=== PATIENT | male | born 1990 | race Caucasian/White ===

== ENCOUNTER 2022-06-01 20:31 | Emergency (ER) | payer MEDICAID ==
[~2022-06-01] VITALS: Ht 198.1 cm; Wt 74.8 kg
[2022-06-01 20:40] VITALS: BP 153/96
--- NOTE | 2022-06-01 20:43 | NUR ---
to lobby a/w bed ambulatory
[2022-06-01] MEDS ORDERED: BACITRACIN OINT 500 UNITS/GM PKT TP ONE (21:15)
--- NOTE | 2022-06-01 21:15 | NUR ---
to chair A ambulatory
--- NOTE | 2022-06-01 21:32 | NUR ---
seen and examined by RYAN, with orders and carried out.
[2022-06-01] MEDS ORDERED: NAPR-54 PO (21:50)
--- NOTE | 2022-06-01 22:10 | NUR ---
GAVE PATIENT ICE PACK PER RQ
[2022-06-01 22:12] VITALS: BP 138/80
--- NOTE | 2022-06-01 22:12 | NUR ---
Patient discharged with v/s stable. Written and verbal after care instructions given BURN CARE and explained. Patient alert, oriented and verbalized understanding of instructions. Ambulatory with steady gait. All questions addressed prior to discharge. ID band removed. Patient advised to follow up with PMD. Rx of NAPROXEN given.
== END 2022-06-01 22:12 | disposition home or self-care (01) ==
LOC: MED 20:31
DX: T23.201A Burn of second degree of right hand, unspecified site, initial encounter (principal); F12.90 Cannabis use, unspecified, uncomplicated; Z79.899 Other long term (current) drug therapy; Z98.890 Other specified postprocedural states; X08.8XXA Exposure to other specified smoke, fire and flames, initial encounter; Y93.89 Activity, other specified; Y92.89 Other specified places as the place of occurrence of the external cause; Y99.8 Other external cause status
CPT/HCPCS: 16000; 99282

== ENCOUNTER 2022-07-20 23:25 | Emergency (ER) | payer MEDICAID ==
[~2022-07-20] VITALS: Ht 195.6 cm; Wt 77.1 kg
[~2022-07-20 23:25] MED LIST: NAPR-54 PO
[2022-07-20 23:37] VITALS: BP 165/80
--- NOTE | 2022-07-20 23:55 | NUR ---
Patient ambulated to bed 1.
--- NOTE | 2022-07-21 00:16 | NUR ---
32 Y/O MALE BIBS FROM [facility], C/O abscess x 2 days. Patient reported, had swelling and redness - pubic area for 2 days, no fever. DENIES COUGH, CP, SOB. SKIN IS PINK UNDERTONES/WARM/DRY. A/OX4, UNLABORED BHREATHING, AMBULATORY. PMHx: DENIES NKA
[2022-07-21] MEDS ORDERED: LIDOCAINE MPF 1% 10 MG/ML VIAL INJ ONE (01:20)
--- NOTE | 2022-07-21 01:40 | NUR ---
DR KELLEY AT BEDSIDE PERFORMING PROCEDURE
[2022-07-21] MEDS ORDERED: SULF-59 PO (01:59)
[2022-07-21] MEDS ORDERED: KETOROLAC 30 MG/ML VIAL IM ONE (02:00)
[2022-07-21] MEDS ORDERED: SULFAMETH/TRIMETH DS 800/160MG 1 TAB PO ONE (02:00)
[2022-07-21 02:28] VITALS: BP 142/72
== END 2022-07-21 02:28 | disposition home or self-care (01) ==
LOC: MED 23:25
DX: L02.818 Cutaneous abscess of other sites (principal); Z79.899 Other long term (current) drug therapy
CPT/HCPCS: 10060; 96372; 99284; J1885; J2001; 56405

== ENCOUNTER 2022-08-15 23:05 | Emergency (ER) | payer MEDICAID ==
[~2022-08-15] VITALS: Ht 195.6 cm; Wt 77.1 kg
[~2022-08-15 23:05] MED LIST changes: +SULF-59 PO
[2022-08-15 23:12] VITALS: BP 163/96
--- NOTE | 2022-08-15 23:21 | NUR ---
C/O urinary burning and blood in urine x today. Patient reported, had blood in urine and painful, no discharge. PMHx: DENIES
[2022-08-15] MEDS ORDERED: PHEN-1877 PO (23:40)
[2022-08-15] MEDS ORDERED: CEPH-588 PO (23:40)
--- NOTE | 2022-08-16 00:01 | NUR ---
Dr. Dickey examining patient.
[2022-08-16 00:10] VITALS: BP 142/72
--- NOTE | 2022-08-16 00:10 | NUR ---
Patient discharged with v/s stable. Written and verbal after care instructions given and explained. Patient alert, oriented and verbalized understanding of instructions. Ambulatory with steady gait. All questions addressed prior to discharge. ID band removed. Patient advised to follow up with PMD. Rx of Keflex and Pydridium given. Patient educated on indication of medication including possible reaction and side effects. Opportunity to ask questions provided and answered.
== END 2022-08-16 00:10 | disposition home or self-care (01) ==
LOC: MED 23:05
DX: R30.0 Dysuria (principal)
CPT/HCPCS: 81002; 99283